=== PATIENT | female | born 1945 | race Caucasian/White ===

== ENCOUNTER 2023-01-25 22:11 | Emergency (ER) | payer MEDICARE ==
[~2023-01-25] VITALS: Ht 162.6 cm; Wt 70.9 kg
[2023-01-25 22:43] VITALS: TEMP 97.9
[2023-01-26] MEDS ORDERED: MORPHINE 4 MG/ML 1ML VIAL IV ONE ×2 (00:30→04:50)
[2023-01-26 01:23] LABS: BASO # 0.1 10^3/uL (0.0-0.2); BASO % 0.7 % (0.0-1.0); EOS # 0.2 10^3/uL (0.0-0.5); EOS % 1.3 % (0.0-3.0); HEMOGLOBIN 9.5 g/dl (12.0-15.5); LYMPH # 2.9 10^3/uL (1.5-5.0); LYMPH % 18.3 % (24.0-44.0); MEAN CORPUSCULAR HEMOGLOBIN 30.7 pg (27.0-33.0); MEAN CORPUSCULAR HGB CONC 32.8 g/dl (32.0-36.5); MEAN CORPUSCULAR VOLUME 93.9 fl (80.0-96.0); MONO # 1.1 10^3/uL (0.0-0.8); MONO % 7.1 % (2.0-8.0); NEUTROPHILS # 10.9 10^3/uL (1.5-8.5); NEUTROPHILS % 69.2 % (36.0-66.0); PLATELET COUNT, AUTOMATED 341 10^3/uL (150-450); RED BLOOD COUNT 3.09 10^6/uL (4.00-5.40); WHITE BLOOD COUNT 15.8 10^3/uL (4.0-10.0)
[2023-01-26 01:29] LABS: INR 1.11
[2023-01-26 01:30] LABS: PARTIAL THROMBOPLASTIN TIME 32.4 SECONDS (24.8-34.2)
[2023-01-26] MEDS ORDERED: atenoloL 50 MG TAB PO ONE (02:10)
[2023-01-26] MEDS ORDERED: cloNIDine 0.1MG TABLET PO ONE (02:10)
[2023-01-26 02:32] VITALS: BP 213/95
[2023-01-26] MEDS ORDERED: hydrALAZINE 20MG/ML 1ML VIAL IV STA (03:20)
[2023-01-26] MEDS ORDERED: MORPHINE 4 MG/ML 1ML VIAL IV PRN (07:55)
[2023-01-26 08:45] VITALS: BP 153/72; O2SAT 97
== END 2023-01-26 09:02 | disposition short-term general hospital (02) ==
LOC: EDBD 22:11 → M ED 22:11
DX: I72.4 Aneurysm of artery of lower extremity (principal); I10 Essential (primary) hypertension; Z88.0 Allergy status to penicillin; Z79.01 Long term (current) use of anticoagulants
CPT/HCPCS: 85025; 85610; 85730; 87635; 93926; 96365; 96375; 96376; 99285; J0360